=== PATIENT | female | born 2000 | race Caucasian/White ===

== ENCOUNTER 2022-10-24 21:57 | Emergency (ER) | payer SELFPAY ==
[~2022-10-24] VITALS: Ht 165.1 cm; Wt 56.7 kg
[2022-10-24 22:39] VITALS: BP 118/65
[2022-10-24 22:55] VITALS: BP 118/65
--- NOTE | 2022-10-25 01:00 | NUR ---
PT W/C ASSISTED TO BED #5
--- NOTE | 2022-10-25 01:28 | NUR ---
Dr. Wolff examining patient.
[2022-10-25] MEDS ORDERED: KETOROLAC 30 MG/ML VIAL IM ONE (01:35)
--- NOTE | 2022-10-25 01:40 | NUR ---
21 Y/O F presents with R knee pain 9/10 sharp due to falling in a soccer game. pt stated she heard her knee make a popping sound. pt denies any NVD, skin intact, A&Ox4. pt denies any radiating pain. respirations even and unlabored. pt currently on menstrual cycle and denied any chance of being . PMH-pt denies NKA
[2022-10-25] MEDS ORDERED: NAPR-54 PO (01:48)
--- NOTE | 2022-10-25 02:25 | NUR ---
Patient discharged with v/s stable. Written and verbal after care instructions given and explained. Patient alert, oriented and verbalized understanding of instructions. Ambulatory with steady gait. All questions addressed prior to discharge. ID band removed. Patient advised to follow up with PMD. Rx of Naproxen given. Opportunity to ask questions provided and answered. pt provided knee immoblizer and crutches
== END 2022-10-25 02:25 | disposition home or self-care (01) ==
LOC: MED 21:57
DX: S83.8X1A Sprain of other specified parts of right knee, initial encounter (principal); X50.1XXA Overexertion from prolonged static or awkward postures, initial encounter; Y93.66 Activity, soccer; Y92.89 Other specified places as the place of occurrence of the external cause; Y99.8 Other external cause status
CPT/HCPCS: 29505; 73562; 96372; 99283; J1885